=== PATIENT | female | born 1980 | race Caucasian/White ===

== ENCOUNTER 2016-07-11 10:34 | Emergency (ER) | payer OTHER ==
[~2016-07-11] VITALS: Ht 162.6 cm; Wt 77.1 kg
[~2016-07-11 10:34] MED LIST: FLEXERIL10 MG PO; GOOD SENSE IBU200 MG PO; LEVOTHYROXIN0.088 M1 PO; LEVOTHYROXINE0.1 M1 PO; MOTRIN800 MG PO; PERCOCET 325 MG1 TA2 PO
[2016-07-11 10:45] VITALS: BP 136/80
--- NOTE | 2016-07-11 11:25 | ED NECK/BACK PAIN COMPLAINT ---
History of Present Illness General Chief Complaint: Low Back Pain/Injury Stated Complaint: LOWER BACK PAIN Source: patient Exam Limitations: no limitations Vital Signs & Intake/Output Vital Signs & Intake/Output Vital Signs Date Time Temp Pulse Resp B/P Pulse O2 O2 Flow FiO2 Ox Delivery Rate 07/11 1045 98.7 81 20 136/80 99 Room Air Room Air Allergies Coded Allergies: metoclopramide (From REGLAN) (Intermediate, PANIC ATTACKS 07/11/16) naproxen (Intermediate, STOMACH UPSET 07/11/16) amoxicillin (Intermediate, GI UPSET 07/11/16) Reconcile Medications CYCLOBENZAPRINE HCL (Flexeril) 10 MG TAB 1 TAB PO Q8H PRN spasm/pain Avoid operating motor vehicle or heavy machinery Hydrocodone/Acetaminophen (Vicodin 5-300 MG Tablet) 5 MG-300 MG TABLET 1 TAB PO TID PRN PAIN Ibuprofen 200 MG TABLET 4 TAB PO PRN PAIN (Reported) Ibuprofen (Motrin) 800 MG TAB 1 TAB PO Q8H PRN PAIN Levothyroxine Sodium 0.088 MG TAB 1 TAB PO DAILY AC THYROID (Reported) Levothyroxine Sodium 0.1 MG TAB 1 TAB PO DAILY AC THYROID (Reported) OXYCODONE HCL/ACETAMINOPHEN (Percocet 5-325 MG Tablet) 325 MG/5 MG TAB 1 TAB PO Q4-6 PRN PRN PAIN Triage Note: PT TO ED WITH C/O LOW BACK PAIN SINCE LAST WEEK SHOVELING, THEN WAS LEANING OVER TO TUCK DAUGHTER IN ON SUNDAY AND FELT A POP OR WATER BALLOON EXPLODING IN MY BACK, THEN FELL ON ICE LAST NIGHT, NOW IT'S WORSE". Triage Nurses Notes Reviewed? yes Onset: Abrupt Duration: constant Timing: recent history Location: paraspinous muscles Radiation: none Loss of Consciousness: no loss of consciousness : No Patient currently breastfeeds: No HPI: Patient is a 35-year-old female with past medical history of chronic back pain who presents to emergency room seen 2 days ago while transferring her child to the bed while bending over she C/O acute onset of sharp stabbing severe low back pain and audible popping sensation. Patient states that ambulation and lumbar spine movements make worse. Patient has been taking ibuprofen without relief of symptoms Patient denies any lower extremity paresthesia pain abdominal pain and leg weakness saddle paresthesia or bowel or bladder incontinence. (ANGELICA VILLALTA) Past History Travel History Traveled to [place] past 21 day No Medical History Any Pertinent Medical History? see below for history Neurological: migraine EENT: NONE Cardiovascular: hyperlipidemia Respiratory: NONE Gastrointestinal: NONE Hepatic: CHOLY Renal: KIDNEY STONES Musculoskeletal: chronic back pain, sciatica Psychiatric: anxiety Endocrine: hypothyroidism Blood Disorders: NONE Cancer(s): thyroid cancer LOSS PREVENTION OPERATIONS MANAGER/Reproductive: NONE Surgical History Surgical History: cholecystectomy, THYROIDECTOMY Psychosocial History What is your primary language Bulgarian Tobacco Use: Current Daily Use Daily Tobacco Use Amount/Type: => 5 Cigarettes daily ETOH Use: occasional use Illicit Drug Use: denies illicit drug use Family History Hx Contributory? No (ANGELICA VILLALTA) Review of Systems Review of Systems Constitutional: Reports: no symptoms. Eyes: Reports: no symptoms. Ears, Nose, Throat, Mouth: Reports: no symptoms. Respiratory: Reports: no symptoms. Cardiovascular: Reports: no symptoms. Gastrointestinal/Abdominal: Reports: no symptoms. Musculoskeletal: Reports: see HPI, back pain, muscle pain, muscle stiffness. Skin: Reports: no symptoms. Neurological/Psychological: Reports: no symptoms. All Other Systems: Reviewed and Negative (ANGELICA VILLALTA) Physical Exam Physical Exam General Appearance: mild distress Neck: normal inspection, supple, full range of motion Comments: HEENT: Normal EENT exam, Neck: Supple, no lymphadenopathy, normal range of motion without pain or tenderness Back: Normal inspection, generalized point tenderness noted decreased active range of motion Cardiovascular: Regular rate and rhythms no murmurs rubs or gallops, normal JVP Respiratory: Chest nontender. No respiratory distress.breath sounds clear to auscultation bilaterally Abdomen: Soft, nontender nondistended, no appreciable organomegaly. Normal bowel sounds. No ascites Extremity: No edema, no calf tenderness to palpation, normal and equal pulses. Bilateral lower extremity myotomes dermatomes intact Neuro: Alert oriented x3, motor sensory normal, Skin: No appreciable rash on exposed skin, skin is warm and dry. Psych: Mood and affect is normal, memory and judgment is normal. (ANGELICA VILLALTA) Progress Differential Diagnosis: AAA, aortic dissection, C spine injury, carotid dissection, cauda equina syn, herniated disc, myofascial strain, pyelo/UTI, sciatica, spinal cord inj, thoracic outlet syn, T/L spine injury, ureterolithiasis Plan of Care: PATIENT HAS LOWER EXTREMITY INTACT NEUROVASCULAR exam. No concerns of CUADA EQUINA SYNDROME Patient also had significant improvement of pain with above medications of Vicodin. (ANGELICA VILLALTA) Departure Departure Disposition: HOME OR SELF CARE Condition: Stable Clinical Impression Primary Impression: Low back strain Referrals: PATIENT HAS NO PRIMARY CARE DR (PCP/Family) Additional Instructions: As discussed begin icing the area directly 20 minutes every 2 hours. Continue your ibuprofen as directed for pain and inflammation. Begin the prescription of Vicodin for breakthrough pain relief. Prescriptions waiting at your pharmacy. If symptoms worsen return to emergency room. You have been given a primary care doctor's appointment in the emergency room, please go to this appointment for follow-up. Departure Forms: Customer Survey General Discharge Information Prescriptions: Current Visit Scripts Hydrocodone/Acetaminophen (Vicodin 5-300 MG Tablet) 1 TAB PO TID PRN PAIN #9 TAB (ANGELICA VILLALTA) PA/ASSISTANT TECHNICIAN Co-Sign Statement Statement: ED Attending supervision documentation- [] I saw and evaluated the patient. I have also reviewed all the pertinent lab results and diagnostic results. I agree with the findings and the plan of care as documented in the PA's/ASSISTANT TECHNICIAN's documentation. [x] I have reviewed the ED Record and agree with the PA's/ASSISTANT TECHNICIAN's documentation. [] Additions or exceptions (if any) to the PAs/ASSISTANT TECHNICIAN's note and plan are summarized below: [] (SHERIE TSAI DO)
[2016-07-11] MEDS ORDERED: VICODIN 5-3001 EACH PO (12:15)
== END 2016-07-11 12:53 ==
LOC: ERH 10:34
DX: S16.1XXA Strain of muscle, fascia and tendon at neck level, initial encounter (principal); X50.0XXA Overexertion from strenuous movement or load, initial encounter; Y93.F2 Activity, caregiving, lifting